=== PATIENT | male | born 1990 | race Caucasian/White ===

== ENCOUNTER 2016-10-27 00:51 | Emergency (ER) | payer OTHER ==
[2016-10-27 00:55] VITALS: RESP 16
[2016-10-27] MEDS ORDERED: IBUPROFEN 600 MG TAB PO ONE (01:01)
[2016-10-27] MEDS ORDERED: HYDROCODONE/APAP 5/325 TAB PO ONE (01:01)
[2016-10-27] MEDS ORDERED: KETAMINE 100 MG/10 ML SYR IV ONE (01:32)
[2016-10-27] MEDS ORDERED: HYDROCOD/APAP 5/325 PREPACK#6 BTL TAKEHOME ONE (01:39)
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
[2016-10-27 03:08] VITALS: BP 114/66; PULSE 92; TEMP 98.1; O2SAT 96
== END 2016-10-27 02:56 | disposition home or self-care (01) ==
PROC: 0QSKXZZ Reposition Left Fibula, External Approach (ICD-10-PCS; principal; 2016-10-27)
DX: S82.892A Other fracture of left lower leg, initial encounter for closed fracture (principal); S60.042A Contusion of left ring finger without damage to nail, initial encounter; F17.200 Nicotine dependence, unspecified, uncomplicated; Y04.0XXA Assault by unarmed brawl or fight, initial encounter